=== PATIENT | female | born 1990 | race Caucasian/White ===

== ENCOUNTER 2024-06-25 10:01 | Outpatient (CLI) | payer BC, SELFPAY | END 2024-06-25 10:02 | disposition home or self-care (01) | PROVIDERS: Visit Provider Midwife | DX: Z34.91 Encounter for supervision of normal pregnancy, unspecified, first trimester (principal); Z3A.10 10 weeks gestation of pregnancy | CPT/HCPCS: 76801; 86592; 86703; 86704; 86706; 86762; 86787; 86803; 86850; 86900; 86901; 87086; 87340 ==

== ENCOUNTER 2024-07-23 10:01 | Outpatient (CLI) | payer BC, SELFPAY | END 2024-07-23 10:02 | disposition home or self-care (01) | PROVIDERS: Visit Provider Midwife | DX: O09.522 Supervision of elderly multigravida, second trimester (principal); Z3A.14 14 weeks gestation of pregnancy | CPT/HCPCS: 87491; 87591 ==

== ENCOUNTER 2024-08-20 08:25 | Outpatient (CLI) | payer BC, SELFPAY | END 2024-08-20 08:26 | disposition home or self-care (01) | PROVIDERS: Visit Provider Midwife | DX: O09.522 Supervision of elderly multigravida, second trimester (principal); Z3A.18 18 weeks gestation of pregnancy | CPT/HCPCS: 76811 ==

== ENCOUNTER 2024-10-31 08:00 | Outpatient (CLI) | payer BC, SELFPAY | END 2024-10-31 08:01 | disposition home or self-care (01) | LOC: NFLDREF 11-02 04:25 | PROVIDERS: Visit Provider Midwife | DX: Z34.93 Encounter for supervision of normal pregnancy, unspecified, third trimester (principal); Z3A.28 28 weeks gestation of pregnancy | CPT/HCPCS: 86592 ==

== ENCOUNTER 2024-11-14 10:07 | Outpatient (CLI) | payer BC, SELFPAY ==
[2024-11-14 10:24] VITALS: PULSE 97; O2SAT 96
[2024-11-14 10:28] VITALS: BP 100/70; PULSE 112; RESP 16; TEMP 36.7
--- NOTE | 2024-11-14 14:22 | PC.OBNST ---
NST Note NST Note Start: 11/14/24 10:10 Freq: ONCE Status: Active Protocol: Document 11/14/24 13:13 WK (Rec: 11/14/24 14:22 WK Desktop) NST Note 3 Para (# of births) 2 EDC 01/19/25 Gestational Age In Weeks & Days 30 Weeks & 4 Days Patient Presented with Complaint(s) of Observation after an injury If Observation after an injury, describe Pt ambulating out to her vehicle for appt, slipped and fell on buttocks. Reactive Yes RN Timbo RNC Date 11/14/24 Reactive Yes RN Sylvain RN Date 11/14/24 OB NST charge Yes Complete NST Note via Write Note Yes The provider's electronic signature indicates the NST is reactive/appropriate for gestational age. *Note to provider: If an addendum is required, open the patient's chart and click on the note under the Nurse/Allied Health tab.
== END 2024-11-14 13:18 | disposition home or self-care (01) ==
LOC: OB OUT 10:07 → OB 10:07
PROVIDERS: Visit Provider Midwife
DX: O26.893 Other specified pregnancy related conditions, third trimester (principal); S39.92XA Unspecified injury of lower back, initial encounter; W19.XXXA Unspecified fall, initial encounter; Z3A.30 30 weeks gestation of pregnancy
CPT/HCPCS: 59025; G0463

== ENCOUNTER 2024-12-05 09:54 | Outpatient (CLI) | payer BC, SELFPAY ==
--- NOTE | 2024-12-05 10:00 | CRLHL7_ITS ---
For Patients: As a result of the Century Cures Act, medical imaging exams and procedure reports are released immediately into your electronic medical record. You may view this report before your referring provider. If you have questions, please contact your health care provider. OB ULTRASOUND LMP: 04/14/2024. SUZE by LMP: 01/19/2025. GA: 33 w, 4 d. Single. Comparison: 08/20/2024 (level 2) INDICATION: Measuring large for dates. TECHNIQUE: Real time champion scale imaging of the fetus was performed. Transabdominal. CERVIX: Not visualized. POSITIONING: Vertex. AMNIOTIC FLUID: 6.3 cm. SDP (N: greater than 2 x 1 cm) PLACENTA: Technique: Transabdominal. PLACENTA POSITION: Anterior. DOPPLER: heart rate: 150 bpm. BIOMETRY: BPD: 8.3 cm. 33 w, 3 d, 41.3 percent. HC: 31.1cm. 34 w, 6 d, 45.2 percent. AC: 30.4 cm. 34 w, 2 d, 73.9 percent. FL: 6.5 cm. 33 w, 3 d, 35.3 percent. FL/AC ratio: 21.34 percent. HC/AC ratio: 1.03. EFW: 2334 g. Weight: 5 lbs, 2 oz. age by this US: 34 w, 0 d. SUZE by this US: 01/16/2025. Percentile by SUZE: 56.7 percent. IMPRESSION: 1. Single live intrauterine gestation at 34 weeks 0 days. SUZE 01/16/2025. 2. Estimated weight is 334 grams which lies at the 57th percentile. Makenzie Newman M.D. Diagnostic/Breast Radiologist [email or web address] [place] / DW/Dictated by: Makenzie Newman MD @ 12/06/2024 6:47:00 AM (Electronically Signed)
== END 2024-12-05 09:55 | disposition home or self-care (01) ==
LOC: US 09:55
PROVIDERS: Visit Provider Advanced Practice Midwife
DX: O36.63X0 Maternal care for excessive fetal growth, third trimester, not applicable or unspecified (principal); Z3A.33 33 weeks gestation of pregnancy
CPT/HCPCS: 76816

== ENCOUNTER 2024-12-25 10:26 | Outpatient (CLI) | payer BC, SELFPAY ==
[2024-12-26 11:37] LABS: Strep B DNA Probe Negative (Negative)
[2024-12-26 12:51] LABS: Strep B Susceptibility Needed? No
== END 2024-12-25 10:27 | disposition home or self-care (01) ==
LOC: NFLDREF 10:27
PROVIDERS: Visit Provider Advanced Practice Midwife
DX: Z34.93 Encounter for supervision of normal pregnancy, unspecified, third trimester (principal); Z3A.36 36 weeks gestation of pregnancy
CPT/HCPCS: 87081; 87653

== ENCOUNTER 2025-01-08 12:02 | Outpatient (CLI) | payer BC, SELFPAY | END 2025-01-08 12:03 | disposition home or self-care (01) | LOC: US 12:03 | PROVIDERS: Visit Provider Advanced Practice Midwife | DX: O36.63X0 Maternal care for excessive fetal growth, third trimester, not applicable or unspecified (principal); Z3A.39 39 weeks gestation of pregnancy | CPT/HCPCS: 76816 ==

== ENCOUNTER 2025-01-18 16:02 | Inpatient (IN) | payer BC, SELFPAY ==
[2025-01-18 16:12] VITALS: BP 118/69; PULSE 122; PULSE 123; TEMP 36.9; O2SAT 98
[2025-01-18 16:15] VITALS: BMI 38.0
[2025-01-18] MEDS: miSOPROStoL 25 MCG/0.25 TABLET VAGINAL ×2 (17:05→21:08)
--- NOTE | 2025-01-18 17:09 | W.PM.LDBA ---
Subjective History of Present Illness Date Seen: 01/18/25 Narrative: Patient is being admitted to Labor and Delivery for IOL elective. She is a 34 year old at weeks gestation. Her full history and physical was dictated by me on 01/01/2025. Please see this for details. Pelvis proven to 8# 15 oz. Specific Issues/Plans Partner: Kwabena H&P completed by Yoan on 01/01/25 #AMA: Genetic Screen recommended: Declined, later NIPT drawn after EIF found and normal findings Lev 2 US recommended: completed, EIF noted. Genetic screen recommended, completed and normal findings. #BMI pre of 30.2 Recommend baby ASA at 12w and 11-20# weight gain #Hx anxiety and depression- no current meds therapy referral sent 01/08- discussed medications for end of or PP, declines at this time #Hx anemia: NOB hgb-13.0 # Hx of Polyhydramnios last #Large for dates US: 56% 01/08 US for increased growth- IMPRESSION.:Single live intrauterine gestation at 39 weeks 3 days with SUZE of 01/12/2025. Estimated weight is 3854 grams which lies at the 90th percentile COVID: declined Flu: declined TDAP:declined RSV: declined 32wk Mental Health: 34wk Hgb: 11.5 Imagin08/20/2024: LEV 2 normal except EIF noted. Pt then elected NIPT with carrier screen. Ordered and drawn. Normal findings. OB - Problem Based A/P Additional Plan (1) Large for dates complicating in third trimester, antepartum: Status: Acute (2) : Status: Acute (3) AMA (advanced maternal age) multigravida 35+: Status: Acute (4) Anxiety with depression: Problem details: Uneasiness as the due date approaches, concerns surrounding not being prepared at home, and unsure if she will know when to come in with a spontaneous labor as her others were inductions. Status: Chronic (5) Needle phobia: Status: Chronic Plan ASSESSMENT:?? 34 at 39w6d gestation?? complicated by:??AMA, EIF solitary finding with normal NIPT, hx anxiety and depression-no current meds, LGA suspected with EFW 90%ile, Pre BMI 31.7 Labor type: Induced labor?? Category 1 FHR pattern.??? Labor complicated by: none?? GBS negative ?? PLAN:?? 1. Routine intrapartum cares as ordered. Options for ripening reviewed. Shared decision making used to decide on vaginal cytotec q 4 hrs. 2. Monitoring per policy, continuous 3. Planning unmedicated . Desires water . Consent signed. Hep C negative. Candidate for analgesia of choice.??? 4. Patient encouraged to reposition and ambulate to promote physiologic labor and .?? 5. Anticipate 6. Dahl CNM taking over care. L&D aware.? OB Exam Physical Exam Vital signs: Temp Pulse BP Pulse Ox 98.4 F 122 H 118/69 98 01/18/25 16:12 01/18/25 16:12 01/18/25 16:12 01/18/25 16:12 Narrative: Vitals Reviewed Constitutional:? Alert and oriented x3 HEENT:? Normocephalic, atraumatic Neck:? Supple Lungs:? Clear to auscultation bilaterally Heart:? Regular rate and rhythm, no murmur, rub or gallop Abdomen:? Soft, nontender, and gravid. Vertex by Daniele's, confirmed with cervical exam. Extremities:? No edema or erythema Cervix: 1 cm/50%/-3 station/vertex/soft/midposition NST: 120 bpm/moderate variability/accelerations present/decelerations absent/contractions q 5 min and mild to palpate, not felt by patient. EFW 9#2oz.
[2025-01-18 19:15] VITALS: BP 114/77; PULSE 91; RESP 18; TEMP 36.9
[2025-01-18 21:07] VITALS: BP 118/76; PULSE 95; RESP 18; TEMP 37.1
[2025-01-19] VITALS (20 sets, daily range): BP systolic 95–119; BP diastolic 60–81; PULSE 68–101; RESP 16–20; TEMP 36.4–37.1; O2SAT 94–98
[2025-01-19] MEDS: miSOPROStoL 25 MCG/0.25 TABLET VAGINAL ×2 (01:42→05:50)
--- NOTE | 2025-01-19 07:18 | PM.OBPNL ---
Subjective Date Seen: 01/19/25 Narrative: Christine has now received 4 doses of vaginal Cytotec. She has been feeling cramping rating it a 2/10 overnight. She did get some sleep. Category 1 tracing with contractions every 2-4 minutes. We discussed AROM vs Pitocin to continue IOL. Her last SVE per the RN with her last dose of Cytotec was 2.5/70%/-3 and per the RNs report AROM is not a safe or good option at this time due to a difficult to reach cervix and baby not well applied to the cervix. Discussed starting Pitocin and Christine is agreeable to this plan. Will plan for Pitocin titration starting around 0945. Can consider AROM later today if needed and appropriate. Denies questions or concerns at this time and encourage additional rest if able and movement to promote physiologic labor and if unable to rest more this morning. Objective Vital Signs: Last Vital Signs Temp 98.2 F 01/19/25 05:53 Pulse 68 01/19/25 07:16 Resp 18 01/19/25 05:53 BP 108/71 01/19/25 07:16 Pulse Ox 97 01/19/25 07:13 Contractions Monitor mode: External Contraction Frequency: 2-4 Contraction pattern: Regular Contraction intensity: Mild Assessment Assessment: induction ongoing Station: -3 Status: Category l Heart Rate Baseline: 120 Strategic Intelligence Officer Variability: Moderate (6-25) Monitor Accelerations: Present Monitor Decelerations: None Plan Plan: ASSESSMENT:?? 34 at 40w0d gestation?? complicated by:??AMA, EIF solitary finding with normal NIPT, hx anxiety and depression-no current meds, LGA suspected with EFW 90%ile, Pre BMI 31.7 Labor type: Elective induction of labor?? Category 1 FHR pattern.??? Labor complicated by: none?? GBS negative Blood type: B+ ?? PLAN:?? 1. Routine intrapartum cares as ordered. Options for continuing IOL reviewed. Shared decision making used to decide on Pitocin titration. 2. Monitoring per policy, continuous. IV placement when initiating Pitocin. 3. Planning unmedicated . Desires water . Consent signed. Hep C negative. Candidate for analgesia of choice.??? 4. Patient encouraged to reposition and ambulate to promote physiologic labor and .?? 5. Anticipate
--- NOTE | 2025-01-19 11:33 | W.PM.OBVAGDE ---
OB Procedure Vag Delivery Mother Details Mother Details: The patient is a 34 year-old, 3, Para 3, admitted on 01/18/25 at Days gestation. : 3 Para: 3 Weeks Gestation: 40.0 Admission Date: 01/18/25 Additional Details Amniotic Membrane Status: SROM Amniotic Membrane Rupture Date: 01/19/25 Amniotic Membrane Rupture Time: 07:50 (fore bag SROM at 1051) Amniotic Membrane Fluid Description: Clear Analgesia/Anesthesia Type: None Waterbirth: Yes Pitcoin: No Intrapartal Events: Labor Induction and Precipitous Labor <3 Hrs Induction Method: per misoprostol protocol Labor Onset: 07:50 Complete: 10:51 (presumed with spontaneous pushing ) Pushin:51 Heart: heart tones during second stage were difficult to trace due to rapid descent and maternal movement/positioning. Delivery Details Delivery Date: 01/19/25 Delivery Time: 11:09 Route of delivery: Infant Gender: Male Infant Viability: Alive; Heart Rate Present Position at Delivery: OA Delivery Details: Patient was admitted for IOL and progressed 4 doses of Cytotec followed by SROM. SROM noted at 0750 with clear fluid. Patient was presumed complete with spontaneous pushing at 1051. She had been standing at the bedside but did get into the tub within a few minutes of delivery time when it was filled and ready. of a viable male at 1109 in hands and knees in the tub. Vertex delivered OA. No nuchal cord or shoulder. Body delivered easily and without incident. passed to mothers abdomen with a vigorous cry. Cord was clamped and cut at > 5 minutes. APGARS were 7 at one minute and 8 at five minutes respectively. Mouth was bulb suctioned. Intact placenta with a 3 vessel cord delivered spontaneously at 1122 in the bed. Fundus firm. 1st identified. Hemostatic and very well approximated so not repaired after shared decision making. QBL 100 cc. Mother and baby stable; mother plans to breastfeed. Infant weight 7lb 11oz.? 1 Minute Interval Total Score: 7 5 Minute Interval Total Score: 8 Additional Details Shoulder Dystocia: No Placenta Delivery Time: 11:22 Placental Delivery Description: Spontaneous Procedure Done: Global Blood Loss: 100 Laceration: Perineal - 1st Degree (not repaired ) Episiotomy Description: None Blood Loss Measurement Type: QBL Bakri Used: No Sponge/Need Count Correct: Yes Cord Vessel Description: 3 Vessels Event Summary Status: Mother and were stable after delivery. Disposition: floor
[2025-01-19] MEDS: OXYTOCIN 10 UNIT/ML INJ IM (12:14)
[2025-01-20 00:01] VITALS: BP 113/80; PULSE 82; RESP 20; O2SAT 97
[2025-01-20 04:04] VITALS: BP 122/86; PULSE 74; RESP 18; TEMP 36.3; O2SAT 97
--- NOTE | 2025-01-20 07:24 | PM.OBDSVD1 ---
DS: Providers Provider Date Seen: 01/20/25 Date of admission: 01/18/25 16:02 Primary care physician: Not a Local Provider Admitting Clinician: iLn Keenan CNM Attending Physician on discharge: Hetal Sands CNM DS: Diagnosis Discharge Diagnosis (1) care and examination immediately after delivery: Status: Acute (2) Anxiety with depression: Status: Chronic (3) Lactating mother: Status: Acute Exam Narrative: Exam Narrative: GENERAL APPEARANCE:? normal affect, alert, no distress MOOD:? appropriate CHEST:? clear to auscultation HEART:? regular rate and rhythm ABDOMEN:? soft, non-tender the uterine fundus is at Umbilicus, Midline and is appropriate for the stage of recovery. PERINEUM:? mild edema of the perineum, there is a Perineal Laceration,?1st degree, that is healing well. EXTREMITIES:? normal and no edema Const: Vital Signs, click to edit/add: Vital Signs - 24 hr 01/19/25 08:10 01/19/25 09:10 01/19/25 09:46 Temperature 97.6 F 98.1 F Pulse Rate 90 Pulse Rate [Pulse Oximeter] Respiratory Rate 18 Blood Pressure Blood Pressure [Ri ght Arm] Pulse Oximetry Oxygen Delivery Me thod 01/19/25 09:53 01/19/25 09:58 01/19/25 10:10 Temperature 98.6 F Pulse Rate Pulse Rate [Pulse Oximeter] Respiratory Rate 20 Blood Pressure Blood Pressure [Ri ght Arm] Pulse Oximetry 95 97 Oxygen Delivery Me thod 01/19/25 11:23 01/19/25 11:23 01/19/25 11:38 Temperature 98.8 F Pulse Rate 93 101 H Pulse Rate [Pulse Oximeter] Respiratory Rate 16 Blood Pressure 112/72 106/69 Blood Pressure [Ri ght Arm] Pulse Oximetry Oxygen Delivery Me thod 01/19/25 11:53 01/19/25 12:08 01/19/25 12:23 Temperature Pulse Rate 89 96 89 Pulse Rate [Pulse Oximeter] Respiratory Rate Blood Pressure 113/73 119/73 110/67 Blood Pressure [Ri ght Arm] Pulse Oximetry Oxygen Delivery Me thod 01/19/25 12:38 01/19/25 12:53 01/19/25 13:08 Temperature Pulse Rate 89 91 100 Pulse Rate [Pulse Oximeter] Respiratory Rate Blood Pressure 95/60 103/66 108/68 Blood Pressure [Ri ght Arm] Pulse Oximetry Oxygen Delivery Me thod 01/19/25 15:47 01/19/25 19:39 01/20/25 00:01 Temperature 98.4 F 97.6 F Pulse Rate Pulse Rate [Pulse Oximeter] 99 89 82 Respiratory Rate 16 16 20 Blood Pressure Blood Pressure [Ri ght Arm] 100/67 113/77 113/80 Pulse Oximetry 94 98 97 Oxygen Delivery Me thod Room Air Room Air Room Air 01/20/25 04:04 Temperature 97.4 F L Pulse Rate Pulse Rate [Pulse Oximeter] 74 Respiratory Rate 18 Blood Pressure Blood Pressure [Ri ght Arm] 122/86 Pulse Oximetry 97 Oxygen Delivery Me thod Room Air OB - DS: Summary Hospital Course Hospital Course: Christine is a 34 y.o. G 3 P 3 who was admitted to L & D for elective IOL. ?She had a NVD that was uncomplicated. The patient feels well. ?The pain is well controlled with current medications. ?She has no new complaints. ?She is breast feeding and reports things are going well. the patient has done well.? Vitals have been stable.? She has remained afebrile.? Has a good appetite, is tolerating a general diet. ?She is voiding without difficulty.? She is passing gas and has not had a bowel movement.? She is ambulating and denies any dizziness.? Has small amount of rubra lochia. She is planning her to get a vasectomy for prevention, they will use condoms until then. Problems: none Discharge home with baby.? Follow up in 2 weeks and 6 weeks.? , may see if needed? For pain control of perineum, breast and pelvic pain, take 600 mg Ibuprofen every 6 hours as needed by mouth or 1000 mg acetaminophen (Tylenol) every 6 hours by mouth as needed. You can alternate these so you are taking something every 3 hours as needed. A heating pad can also be used for your abdomen or breasts. You may also take docusate sodium up to twice daily to soften your stools and help to prevent constipation. You may wean off of it when your stools return to normal.? Peripartum Data delivery method: Vaginal Laceration description: Perineal - 1st Degree complications: none [place] Gender: Male Discharge Plan: Home Status at Discharge Functional status at discharge: independent ambulation Overall status at discharge: patient is progressing back to baseline Time Spent with Patient Time attestation: Total time spent providing and/or coordinating discharge services: Time spent: Less than 30 minutes Discharge Plan Discharge Disposition: Home, Self-Care Date of Admission: 01/18/25 16:02 Attending Provider on Discharge: Hetal Sands Consulting Providers: Carmina Segundo Primary Care Provider: Provider,Not a Local Condition: Stable Anticipated Discharge Date/Time: 01/20/25 12:00 Discharge Medications: New docusate sodium 100 mg Capsule 100 mg PO DAILY Qty: 0 0RF ibuprofen 600 mg Tablet 600 mg PO Q6H PRNQty: 0 0RF acetaminophen 500 mg Tablet 1,000 mg PO Q6H PRNQty: 0 0RF Continued One-A-Day -1 27 mg iron- 800 mcg-235 mg capsule 1 cap PO DAILY Discharge Orders: Discharge Order (Routine); Ordered 01/20/25 Ordered By: Hetal Sands Patient Education: OB Over the Counter Medication Information, OB Vaginal/Breast Feeding Additional Instructions: Discharge instructions were reviewed with the patient including signs and symptoms of infection and home going medications Nothing vaginally for 6 weeks: no tampons or intercourse Off Work or School for 6 weeks 2-week visit: discuss infant feeding concerns, review control options and screen for anxiety/depression. 6-week visit for an annual exam. consultation services are available to all mothers and babies for the first year after delivery.? To make an appointment, please call [phone]. Activity Level: Activity as Tolerated Discharge Diet: Regular Follow Up Appointments: [facility] [Provider Group] Forms: [facility] Info Instructions
[2025-01-20 08:15] VITALS: BP 121/79; PULSE 86; RESP 18; TEMP 36.7; O2SAT 97
== END 2025-01-20 14:45 | disposition home or self-care (01) | DRG 560 ==
PROVIDERS: Admitting Provider Midwife; Visit Provider Midwife
DX: O36.63X0 Maternal care for excessive fetal growth, third trimester, not applicable or unspecified (principal); O62.3 Precipitate labor; O70.0 First degree perineal laceration during delivery; Z3A.39 39 weeks gestation of pregnancy; O99.344 Other mental disorders complicating childbirth; F41.8 Other specified anxiety disorders; F40.231 Fear of injections and transfusions; Z37.0 Single live birth
CPT/HCPCS: 59200; 85025; 86592; 86850; 86900; 86901; A9270; J2590

== ENCOUNTER 2025-03-03 13:29 | Outpatient (CLI) | payer BC, SELFPAY ==
[2025-03-05 04:45] LABS: HPV Source Cervical; HPV, High Risk by TMA Not Detected
[2025-03-12 15:05] LABS: Pap Test Reviewed by Path Done
== END 2025-03-03 13:30 | disposition home or self-care (01) ==
PROVIDERS: Visit Provider Advanced Practice Midwife
DX: Z12.4 Encounter for screening for malignant neoplasm of cervix (principal); Z11.51 Encounter for screening for human papillomavirus (HPV)
CPT/HCPCS: 87624; 87625; 88141; 88142